=== PATIENT | female | born 1985 | race Caucasian/White ===

== ENCOUNTER → 2017-12-17 | Outpatient (CLI) | payer OTHER ==
[~2017-12-17] MED LIST: DOCU-131 PO; HYDR-3240 PO; IBUP-1223 PO
[2017-12-17 10:53] LABS: FREE T4 (FREE THYROXINE) 1.11 ng/dL (0.76-1.46); THYROID STIMULATING HORMONE 0.773 mIU/L (0.358-3.740)
== END | disposition home or self-care (01) ==
LOC: LAB 10:07
PROVIDERS: ATTEND Obstetrics & Gynecology
DX: N92.6 Irregular menstruation, unspecified (principal)
CPT/HCPCS: 36415; 82627; 83001; 83002; 84146; 84402; 84403; 84439; 84443

== ENCOUNTER 2020-05-24 08:15 | Outpatient (CLI) | payer OTHER ==
[~2020-05-24 08:15] MED LIST changes: +HYDR-2214 PO; -HYDR-3240 PO
[2020-05-24 08:52] LABS: BASOPHILS % (AUTO) 1 % (0-1); EOSINOPHILS % (AUTO) 1 % (1-7); LYMPHOCYTES % (AUTO) 33 % (22-44); MEAN CORPUSCULAR HEMOGLOBIN 29.8 pg (27.0-34.8); MEAN CORPUSCULAR HGB CONC 33.8 g/dL (32.4-35.8); MEAN PLATELET VOLUME 8.7 fL (7.4-10.4); MONOCYTES % (AUTO) 5 % (2-9); NEUTROPHILS % (AUTO) 61 % (42-75); PLATELET COUNT 257 x10^3/uL (130-400); RED BLOOD COUNT 4.76 x10^6/uL (3.82-5.3); RED CELL DISTRIBUTION WIDTH 13.3 % (9.6-15.2)
[2020-05-24 08:57] LABS: MD NO
[2020-05-24 09:00] LABS: MICROSCOPIC NOT IND
[2020-05-24 09:02] LABS: ALBUMIN 4.3 g/dL (3.4-5.0); ANION GAP 4 mmol/L (5-15); CALCIUM 8.9 mg/dL (8.5-10.1); CHLORIDE 108 mmol/L (98-107)
[2020-05-24 09:28] LABS: % IRON SATURATION 27 % (20-55); ALANINE AMINOTRANSFERASE 17 U/L (12-78); ALKALINE PHOSPHATASE 45 U/L (45-117); BILIRUBIN,TOTAL 0.3 mg/dL (0.2-1.0); CREATININE 0.72 mg/dL (0.55-1.02); IRON LEVEL 94 mcg/dL (50-170); TOTAL IRON BINDING CAPACITY 349 mcg/dL (250-450); TOTAL PROTEIN 7.8 g/dL (6.4-8.2); TRANSFERRIN 273 mg/dL (200-360)
[2020-05-24 09:36] LABS: FOLATE LEVEL > 20.0 ng/mL (3.1-17.5)
== END 2020-05-24 23:59 | disposition home or self-care (01) ==
LOC: LAB 08:15
PROVIDERS: ATTEND Nurse Practitioner Primary Care
DX: Z13.220 Encounter for screening for lipoid disorders (principal); E55.9 Vitamin D deficiency, unspecified; Z87.19 Personal history of other diseases of the digestive system; Z79.899 Other long term (current) drug therapy; Z83.438 Family history of other disorder of lipoprotein metabolism and other lipidemia; Z82.49 Family history of ischemic heart disease and other diseases of the circulatory system; F06.31 Mood disorder due to known physiological condition with depressive features
CPT/HCPCS: 36415; 80053; 80061; 81003; 82043; 82306; 82607; 82652; 82728; 82746; 83036; 83516; 83540; 83550; 83704; 84207; 84425; 84439; 84443; 84466; 84481; 85025; 86038; 86160; 86225; 86235; 86255; 86256; 86376; 86431; 86800; 86803